=== PATIENT | male | born 1980 | race Caucasian/White ===

== ENCOUNTER 2019-01-05 14:54 | Inpatient (IN) | payer MEDICAID, OTHER ==
[~2019-01-05] VITALS: Ht 160 cm; Wt 53.2 kg
[2019-01-05] MEDS ORDERED: SODIUM CHLORIDE 0.9% 1,000 ML IV ONE ×2 (15:14→16:00)
[2019-01-05] MEDS ORDERED: LORAZEPAM 2MG/ML CPJ IV ONE (15:15)
[2019-01-05] MEDS ORDERED: IBUPROFEN 600MG TABLET PO ONE (15:15)
[2019-01-05 15:43] LABS: HEMATOCRIT. 26.4 % (42.0-52.0); HEMOGLOBIN. 8.8 g/dL (14.0-18.0); MEAN CORPUSCULAR HEMOGLOBIN 27.1 pg (28.0-32.0); MEAN CORPUSCULAR VOLUME 81.3 fL (80.0-94.0); PLATELET 93 x1000/uL (130-400); RED BLOOD CELL COUNT 3.25 mill/uL (4.7-6.1); RED CELL DISTRIBUTION WIDTH 21.4 % (11.6-14.6)
[2019-01-05 15:48] LABS: CHLORIDE 100 mEq/L (98-107)
[2019-01-05 15:49] LABS: INR 1.1; PROTHROMBIN TIME 11.7 sec (9.6-11.0)
[2019-01-05 15:52] LABS: ETHANOL BLOOD < 10 mg/dL
[2019-01-05 16:06] LABS: PLATELET ESTIMATE DECREASED
[2019-01-05] MEDS: PIPERACILLIN/TAZ 3.375G PREMIX 50 ML IV NR ×2 (16:09→16:33)
[2019-01-05] MEDS ORDERED: VANCOMYCIN 1 G PREMIX 200 ML IV SCH (16:15)
[2019-01-05] MEDS ORDERED: PIPERACILLIN/TAZOBACTAM 3.375GM/50ML PREMIX IV ONE (16:15)
[2019-01-05] MEDS ORDERED: POTASSIUM CHLORIDE 20MEQ TABLET SR PO ONE (17:30)
[2019-01-05 17:53] LABS: CLARITY URINE CLOUDY (CLEAR); COLOR URINE DARK YELLOW (YELLOW); KETONES URINE TRACE (NEGATIVE); LEUKOCYTE ESTERASE URINE TRACE (NEGATIVE); NITRITE URINE NEGATIVE (NEGATIVE); OCCULT BLOOD URINE 3+ (NEGATIVE); PH URINE 6.5 (4.5-8.0); PROTEIN URINE 2+ (NEGATIVE); SPECIFIC GRAVITY URINE 1.014 (1.005-1.030)
[2019-01-05] MEDS ORDERED: POTASSIUM CHLORIDE INJ 40 MEQ in DEXT 5% WATER 250 ML IV NR (18:00)
[2019-01-05 18:28] LABS: *AMPHETAMINES SCREEN URINE NEGATIVE (NEGATIVE); *BARBITURATES SCREEN URINE NEGATIVE (NEGATIVE); *BENZODIAZEPINES SCREEN URINE NEGATIVE (NEGATIVE); *COCAINE SCREEN URINE NEGATIVE (NEGATIVE); METHADONE URINE SCREEN NEGATIVE (NEGATIVE); OPIATES URINE SCREEN NEGATIVE (NEGATIVE)
[2019-01-05 18:29] LABS: CANNABINOID URINE SCREEN NEGATIVE (NEGATIVE); PHENCYCLIDINE URINE SCREEN NEGATIVE (NEGATIVE)
[2019-01-05] MEDS ORDERED: MAGNESIUM 2 G PREMIX 50 ML IV ONE (18:30)
[2019-01-05] MEDS ORDERED: MORPHINE SULFATE 2 MG/ML CPJ (NOT FOR IM USE) IV PRN (19:45)
[2019-01-05] MEDS ORDERED: LORAZEPAM 2MG/ML CPJ IV PRN (19:45)
[2019-01-05] MEDS ORDERED: ONDANSETRON HCL 4MG/2ML INJ IV PRN (19:45)
[2019-01-05 23:00] VITALS: BP 114/82
[2019-01-06] VITALS (12 sets, daily range): BP systolic 94–145; BP diastolic 30–89
[2019-01-06] MEDS: DEXT 5%/0.45% NACL 1000ML 1,000 ML IV SCH ×2 (02:35→17:02)
[2019-01-06 06:53] LABS: CHLORIDE 101 mEq/L (98-107)
[2019-01-06 06:59] LABS: HEMOGLOBIN. 8.9 g/dL (14.0-18.0); MEAN CORPUSCULAR HEMOGLOBIN 27.9 pg (28.0-32.0); MEAN CORPUSCULAR VOLUME 81.8 fL (80.0-94.0); MEAN PLATELET VOLUME 9.1 fl (7.4-10.4); PLATELET 96 x1000/uL (130-400); RED BLOOD CELL COUNT 3.18 mill/uL (4.7-6.1); RED CELL DISTRIBUTION WIDTH 21.6 % (11.6-14.6)
[2019-01-06] MEDS: FAMOTIDINE 20MG/2ML VIAL IV SCH (09:31)
[2019-01-06] MEDS ORDERED: POTASSIUM CHLORIDE INJ 40 MEQ in DEXT 5% WATER 250 ML IV NR (11:00)
[2019-01-06] MEDS: THIAMINE HCL 100MG TABLET PO SCH (11:32)
[2019-01-06] MEDS ORDERED: VANCOMYCIN 1,750 MG in DEXT 5% WATER 250 ML IV NR (12:00)
[2019-01-06 12:25] LABS: PLATELET ESTIMATE SLIGHTLY DECREASED
[2019-01-06] MEDS: LORAZEPAM 2MG/ML CPJ IV PRN ×2 (13:32→17:32)
[2019-01-06] MEDS: CHLORDIAZEPOXIDE 25MG CAPSULE PO SCH ×2 (13:32→21:51)
[2019-01-06] MEDS: VANCOMYCIN 1 G PREMIX 200 ML IV SCH ×2 (15:13→21:51)
[2019-01-06] MEDS ORDERED: VANCOMYCIN 1 G PREMIX 200 ML IV SCH (20:00)
[2019-01-06] MEDS: ACETAMINOPHEN 325MG TABLET PO PRN (20:48)
[2019-01-07] VITALS (13 sets, daily range): BP systolic 104–123; BP diastolic 55–86
[2019-01-07] MEDS: VANCOMYCIN 1 G PREMIX 200 ML IV SCH (06:19)
[2019-01-07] MEDS: ACETAMINOPHEN 325MG TABLET PO PRN (06:19)
[2019-01-07] MEDS: CHLORDIAZEPOXIDE 25MG CAPSULE PO SCH ×3 (06:19→22:29)
[2019-01-07] MEDS: DEXT 5%/0.45% NACL 1000ML 1,000 ML IV SCH (06:20)
[2019-01-07 07:32] LABS: CHLORIDE 100 mEq/L (98-107)
[2019-01-07] MEDS: THIAMINE HCL 100MG TABLET PO SCH (08:56)
[2019-01-07] MEDS: FAMOTIDINE 20MG/2ML VIAL IV SCH (08:56)
[2019-01-07] MEDS: LORAZEPAM 2MG/ML CPJ IV PRN ×2 (12:04→16:07)
[2019-01-07] MEDS: VANCOMYCIN 1250MG in DEXTROSE 5% WATER 250ML IV SCH (16:07)
[2019-01-08] VITALS (16 sets, daily range): BP systolic 100–117; BP diastolic 64–82
[2019-01-08] MEDS: VANCOMYCIN 1250MG in DEXTROSE 5% WATER 250ML IV SCH ×2 (00:44→08:14)
[2019-01-08] MEDS: DEXT 5%/0.45% NACL 1000ML 1,000 ML IV SCH ×3 (00:46→12:23)
[2019-01-08] MEDS: LORAZEPAM 2MG/ML CPJ IV PRN (01:18)
[2019-01-08] MEDS: CHLORDIAZEPOXIDE 25MG CAPSULE PO SCH ×3 (06:00→21:14)
[2019-01-08 06:17] LABS: HEMATOCRIT. 25.9 % (42.0-52.0); HEMOGLOBIN. 8.6 g/dL (14.0-18.0); MEAN CORPUSCULAR HEMOGLOBIN 27.7 pg (28.0-32.0); MEAN CORPUSCULAR VOLUME 83.2 fL (80.0-94.0); MEAN PLATELET VOLUME 8.7 fl (7.4-10.4); PLATELET 285 x1000/uL (130-400); RED BLOOD CELL COUNT 3.12 mill/uL (4.7-6.1); RED CELL DISTRIBUTION WIDTH 21.3 % (11.6-14.6)
[2019-01-08 06:29] LABS: CHLORIDE 104 mEq/L (98-107)
[2019-01-08] MEDS: THIAMINE HCL 100MG TABLET PO SCH (08:14)
[2019-01-08] MEDS: FAMOTIDINE 20MG/2ML VIAL IV SCH (08:14)
[2019-01-08] MEDS ORDERED: POTASSIUM CHLORIDE 20MEQ TABLET SR PO NR (09:15)
[2019-01-08] MEDS ORDERED: POTASSIUM CHLORIDE INJ 40 MEQ in DEXT 5% WATER 250 ML IV NR (10:30)
[2019-01-08 16:52] LABS: PLATELET ESTIMATE NORMAL
[2019-01-08] MEDS ORDERED: VANCOMYCIN 1 G PREMIX 200 ML IV SCH (17:00)
[2019-01-08] MEDS: VANCOMYCIN 1 G PREMIX 200 ML IV SCH (18:25)
[2019-01-09] VITALS (12 sets, daily range): BP systolic 100–120; BP diastolic 63–78
[2019-01-09] MEDS: LORAZEPAM 2MG/ML CPJ IV PRN ×3 (01:11→23:53)
[2019-01-09] MEDS: VANCOMYCIN 1 G PREMIX 200 ML IV SCH ×2 (01:57→11:31)
[2019-01-09] MEDS: DEXT 5%/0.45% NACL 1000ML 1,000 ML IV SCH ×4 (02:03→23:54)
[2019-01-09] MEDS: CHLORDIAZEPOXIDE 25MG CAPSULE PO SCH ×3 (06:39→22:18)
[2019-01-09 07:56] LABS: CHLORIDE 107 mEq/L (98-107)
[2019-01-09] MEDS ORDERED: POTASSIUM CHLORIDE 20MEQ TABLET SR PO SCH (08:30)
[2019-01-09] MEDS: FAMOTIDINE 20MG/2ML VIAL IV SCH (09:50)
[2019-01-09] MEDS: THIAMINE HCL 100MG TABLET PO SCH (09:50)
[2019-01-09] MEDS ORDERED: POTASSIUM CHLORIDE INJ 40 MEQ in DEXT 5% WATER 500 ML IV SCH (10:00)
[2019-01-09] MEDS: CEFAZOLIN 2000MG in DEXTROSE 5% WATER 100ML IV SCH ×2 (14:58→22:18)
[2019-01-09] MEDS ORDERED: VANCOMYCIN 1250MG in DEXTROSE 5% WATER 250ML IV SCH (22:00)
[2019-01-10] VITALS (12 sets, daily range): BP systolic 92–114; BP diastolic 59–79
[2019-01-10] MEDS: CEFAZOLIN 2000MG in DEXTROSE 5% WATER 100ML IV SCH ×3 (06:03→22:23)
[2019-01-10] MEDS: CHLORDIAZEPOXIDE 25MG CAPSULE PO SCH ×3 (06:04→22:23)
[2019-01-10 07:39] LABS: CHLORIDE 113 mEq/L (98-107)
[2019-01-10] MEDS: FAMOTIDINE 20MG/2ML VIAL IV SCH (09:22)
[2019-01-10] MEDS: THIAMINE HCL 100MG TABLET PO SCH (09:22)
[2019-01-10] MEDS: DEXT 5%/0.45% NACL 1000ML 1,000 ML IV SCH ×2 (09:23→22:23)
[2019-01-10] MEDS: LORAZEPAM 2MG/ML CPJ IV PRN ×2 (09:23→15:12)
[2019-01-10] MEDS: ACETAMINOPHEN 325MG TABLET PO PRN (09:24)
[2019-01-10] MEDS: POTASSIUM CHLORIDE 20MEQ TABLET SR PO SCH (13:29)
[2019-01-11] VITALS (9 sets, daily range): BP systolic 103–129; BP diastolic 59–85
[2019-01-11] MEDS: CHLORDIAZEPOXIDE 25MG CAPSULE PO SCH ×2 (06:45→13:19)
[2019-01-11] MEDS: THIAMINE HCL 100MG TABLET PO SCH (09:42)
[2019-01-11] MEDS: POTASSIUM CHLORIDE 20MEQ TABLET SR PO SCH (09:42)
[2019-01-11] MEDS: FAMOTIDINE 20MG/2ML VIAL IV SCH (10:52)
[2019-01-11] MEDS: CEFAZOLIN 2,000 MG in DEXT 5% WATER 100 ML IV SCH ×2 (13:21→21:20)
[2019-01-11] MEDS: DEXT 5%/0.45% NACL 1000ML 1,000 ML IV SCH (15:14)
[2019-01-11] MEDS: ACETAMINOPHEN 325MG TABLET PO PRN (21:20)
[2019-01-12] VITALS (7 sets, daily range): BP systolic 99–116; BP diastolic 67–82
[2019-01-12] MEDS: DEXT 5%/0.45% NACL 1000ML 1,000 ML IV SCH ×3 (02:25→20:03)
[2019-01-12] MEDS: CEFAZOLIN 2,000 MG in DEXT 5% WATER 100 ML IV SCH ×3 (07:02→20:03)
[2019-01-12] MEDS: POTASSIUM CHLORIDE 20MEQ TABLET SR PO SCH (09:01)
[2019-01-12] MEDS: THIAMINE HCL 100MG TABLET PO SCH (09:01)
[2019-01-12] MEDS: FAMOTIDINE 20MG/2ML VIAL IV SCH (09:01)
[2019-01-12] MEDS ORDERED: LORAZEPAM 2MG/ML CPJ IV PRN (12:00)
[2019-01-13] VITALS: BP 96/64
[2019-01-13 04:00] VITALS: BP 98/65
[2019-01-13] MEDS: CEFAZOLIN 2,000 MG in DEXT 5% WATER 100 ML IV SCH (04:54)
[2019-01-13 08:00] VITALS: BP 101/63
[2019-01-13] MEDS: THIAMINE HCL 100MG TABLET PO SCH (08:10)
[2019-01-13] MEDS: FAMOTIDINE 20MG/2ML VIAL IV SCH (08:10)
[2019-01-13] MEDS: POTASSIUM CHLORIDE 20MEQ TABLET SR PO SCH (08:10)
[2019-01-13] MEDS: DEXT 5%/0.45% NACL 1000ML 1,000 ML IV SCH ×2 (08:11→17:43)
[2019-01-13 12:00] VITALS: BP 104/70
[2019-01-13] MEDS: SULFAMETHOXAZOLE/TRIMETHOPRIM 400/80MG TAB PO SCH (15:11)
[2019-01-13 16:00] VITALS: BP 104/73
[2019-01-13 20:00] VITALS: BP 104/74
[2019-01-14] VITALS: BP 99/69
[2019-01-14] MEDS: SULFAMETHOXAZOLE/TRIMETHOPRIM 400/80MG TAB PO SCH ×2 (02:14→14:19)
[2019-01-14] MEDS: DEXT 5%/0.45% NACL 1000ML 1,000 ML IV SCH ×3 (03:16→23:50)
[2019-01-14 04:00] VITALS: BP 104/70
[2019-01-14 08:00] VITALS: BP 101/72
[2019-01-14] MEDS: THIAMINE HCL 100MG TABLET PO SCH (09:13)
[2019-01-14] MEDS: POTASSIUM CHLORIDE 20MEQ TABLET SR PO SCH (09:13)
[2019-01-14] MEDS: FOLIC ACID/VITAMIN B COMP W-C TABLET PO SCH (09:13)
[2019-01-14] MEDS: FAMOTIDINE 20MG/2ML VIAL IV SCH (09:13)
[2019-01-14] MEDS: ACETAMINOPHEN 325MG TABLET PO PRN (09:14)
[2019-01-14] MEDS: MULTIVITAMINS,THER W-MINERALS TABLET PO SCH (09:26)
[2019-01-14 12:00] VITALS: BP 97/67
[2019-01-14 16:00] VITALS: BP 92/63
[2019-01-14 20:00] VITALS: BP 98/64
[2019-01-15] VITALS: BP 99/65
[2019-01-15] MEDS: SULFAMETHOXAZOLE/TRIMETHOPRIM 400/80MG TAB PO SCH ×2 (01:54→14:40)
[2019-01-15 04:00] VITALS: BP 94/59
[2019-01-15 08:00] VITALS: BP 104/66
[2019-01-15] MEDS: FAMOTIDINE 20MG/2ML VIAL IV SCH (09:02)
[2019-01-15] MEDS: MULTIVITAMINS,THER W-MINERALS TABLET PO SCH (09:02)
[2019-01-15] MEDS: FOLIC ACID/VITAMIN B COMP W-C TABLET PO SCH (09:02)
[2019-01-15] MEDS: POTASSIUM CHLORIDE 20MEQ TABLET SR PO SCH (09:02)
[2019-01-15] MEDS: THIAMINE HCL 100MG TABLET PO SCH (09:39)
[2019-01-15 12:00] VITALS: BP 100/59
[2019-01-15 15:51] VITALS: BP 100/55
[2019-01-15] MEDS: DEXT 5%/0.45% NACL 1000ML 1,000 ML IV SCH (19:43)
[2019-01-15 20:00] VITALS: BP 93/59
[2019-01-16] VITALS: BP 93/66
[2019-01-16] MEDS: SULFAMETHOXAZOLE/TRIMETHOPRIM 400/80MG TAB PO SCH ×2 (02:21→14:36)
[2019-01-16 04:00] VITALS: BP 90/54
[2019-01-16] MEDS: DEXT 5%/0.45% NACL 1000ML 1,000 ML IV SCH ×2 (06:18→15:47)
[2019-01-16 08:00] VITALS: BP 90/53
[2019-01-16] MEDS: ACETAMINOPHEN 325MG TABLET PO PRN (09:23)
[2019-01-16] MEDS: FAMOTIDINE 20MG/2ML VIAL IV SCH (09:23)
[2019-01-16] MEDS: THIAMINE HCL 100MG TABLET PO SCH (09:24)
[2019-01-16] MEDS: FOLIC ACID/VITAMIN B COMP W-C TABLET PO SCH (09:24)
[2019-01-16] MEDS: POTASSIUM CHLORIDE 20MEQ TABLET SR PO SCH (09:24)
[2019-01-16] MEDS: MULTIVITAMINS,THER W-MINERALS TABLET PO SCH (09:24)
[2019-01-16 12:00] VITALS: BP 96/61
[2019-01-16 16:00] VITALS: BP 98/57
[2019-01-16 20:00] VITALS: BP 99/61
[2019-01-17] VITALS: BP 103/63
[2019-01-17] MEDS: DEXT 5%/0.45% NACL 1000ML 1,000 ML IV SCH ×3 (01:43→20:51)
[2019-01-17 04:00] VITALS: BP 103/67
[2019-01-17] MEDS: SULFAMETHOXAZOLE/TRIMETHOPRIM 400/80MG TAB PO SCH ×2 (04:26→14:52)
[2019-01-17 08:00] VITALS: BP 94/65
[2019-01-17] MEDS: FOLIC ACID/VITAMIN B COMP W-C TABLET PO SCH (09:54)
[2019-01-17] MEDS: THIAMINE HCL 100MG TABLET PO SCH (09:54)
[2019-01-17] MEDS: POTASSIUM CHLORIDE 20MEQ TABLET SR PO SCH (09:54)
[2019-01-17] MEDS: MULTIVITAMINS,THER W-MINERALS TABLET PO SCH (09:54)
[2019-01-17] MEDS: FAMOTIDINE 20MG/2ML VIAL IV SCH (09:54)
[2019-01-17 12:00] VITALS: BP 100/67
[2019-01-17] MEDS: CHLORDIAZEPOXIDE 25MG CAPSULE PO SCH ×2 (14:50→17:23)
[2019-01-17 16:00] VITALS: BP 102/68
[2019-01-17 20:00] VITALS: BP 89/50
[2019-01-18] VITALS: BP 89/55
[2019-01-18 04:00] VITALS: BP 91/59
[2019-01-18] MEDS: SULFAMETHOXAZOLE/TRIMETHOPRIM 400/80MG TAB PO SCH ×2 (05:32→13:59)
[2019-01-18] MEDS: DEXT 5%/0.45% NACL 1000ML 1,000 ML IV SCH ×2 (05:33→16:20)
[2019-01-18 08:00] VITALS: BP 93/53
[2019-01-18] MEDS: THIAMINE HCL 100MG TABLET PO SCH (09:12)
[2019-01-18] MEDS: FAMOTIDINE 20MG/2ML VIAL IV SCH (09:12)
[2019-01-18] MEDS: MULTIVITAMINS,THER W-MINERALS TABLET PO SCH (09:12)
[2019-01-18] MEDS: FOLIC ACID/VITAMIN B COMP W-C TABLET PO SCH (09:12)
[2019-01-18] MEDS: POTASSIUM CHLORIDE 20MEQ TABLET SR PO SCH (09:12)
[2019-01-18] MEDS: CHLORDIAZEPOXIDE 25MG CAPSULE PO SCH ×3 (09:13→16:20)
[2019-01-18 12:00] VITALS: BP_SYST 93; BP_SYST 97; BP_DIAS 51; BP_DIAS 55
[2019-01-18 16:00] VITALS: BP 97/55
[2019-01-18 20:00] VITALS: BP 98/61
[2019-01-19] VITALS: BP 90/50
[2019-01-19] MEDS: SULFAMETHOXAZOLE/TRIMETHOPRIM 400/80MG TAB PO SCH ×2 (02:06→13:13)
[2019-01-19 04:00] VITALS: BP 97/61
[2019-01-19] MEDS: DEXT 5%/0.45% NACL 1000ML 1,000 ML IV SCH ×3 (07:07→23:27)
[2019-01-19 08:00] VITALS: BP 97/61
[2019-01-19] MEDS: FAMOTIDINE 20MG/2ML VIAL IV SCH (09:47)
[2019-01-19] MEDS: FOLIC ACID/VITAMIN B COMP W-C TABLET PO SCH (09:47)
[2019-01-19] MEDS: MULTIVITAMINS,THER W-MINERALS TABLET PO SCH (09:47)
[2019-01-19] MEDS: CHLORDIAZEPOXIDE 25MG CAPSULE PO SCH ×3 (09:47→18:32)
[2019-01-19] MEDS: POTASSIUM CHLORIDE 20MEQ TABLET SR PO SCH (09:47)
[2019-01-19] MEDS: THIAMINE HCL 100MG TABLET PO SCH (09:47)
[2019-01-19 12:00] VITALS: BP 94/58
[2019-01-19 16:00] VITALS: BP 97/61
[2019-01-19 20:00] VITALS: BP 99/56
[2019-01-20] VITALS: BP 108/63
[2019-01-20] MEDS: SULFAMETHOXAZOLE/TRIMETHOPRIM 400/80MG TAB PO SCH ×2 (02:03→14:05)
[2019-01-20 04:00] VITALS: BP 101/64
[2019-01-20 08:00] VITALS: BP 99/65
[2019-01-20] MEDS: FAMOTIDINE 20MG/2ML VIAL IV SCH (08:39)
[2019-01-20] MEDS: FOLIC ACID/VITAMIN B COMP W-C TABLET PO SCH (08:39)
[2019-01-20] MEDS: CHLORDIAZEPOXIDE 25MG CAPSULE PO SCH ×3 (08:39→18:00)
[2019-01-20] MEDS: POTASSIUM CHLORIDE 20MEQ TABLET SR PO SCH (08:39)
[2019-01-20] MEDS: MULTIVITAMINS,THER W-MINERALS TABLET PO SCH (08:39)
[2019-01-20] MEDS: THIAMINE HCL 100MG TABLET PO SCH (08:39)
[2019-01-20] MEDS: DEXT 5%/0.45% NACL 1000ML 1,000 ML IV SCH ×2 (08:48→19:43)
[2019-01-20 12:00] VITALS: BP 102/57
[2019-01-20 16:00] VITALS: BP 90/54
[2019-01-20 20:00] VITALS: BP 107/65
[2019-01-21] VITALS: BP 106/61
[2019-01-21 04:00] VITALS: BP 100/56
[2019-01-21] MEDS: DEXT 5%/0.45% NACL 1000ML 1,000 ML IV SCH ×2 (06:22→15:20)
[2019-01-21 08:00] VITALS: BP 97/59
[2019-01-21] MEDS: FAMOTIDINE 20MG/2ML VIAL IV SCH (09:00)
[2019-01-21] MEDS: POTASSIUM CHLORIDE 20MEQ TABLET SR PO SCH (09:46)
[2019-01-21] MEDS: FOLIC ACID/VITAMIN B COMP W-C TABLET PO SCH (09:46)
[2019-01-21] MEDS: MULTIVITAMINS,THER W-MINERALS TABLET PO SCH (09:46)
[2019-01-21] MEDS: CHLORDIAZEPOXIDE 25MG CAPSULE PO SCH ×3 (09:46→16:05)
[2019-01-21] MEDS: THIAMINE HCL 100MG TABLET PO SCH (09:46)
[2019-01-21 12:01] VITALS: BP 91/48
[2019-01-21 16:00] VITALS: BP 96/59
[2019-01-21] MEDS: ACETAMINOPHEN 325MG TABLET PO PRN (17:33)
[2019-01-21 20:00] VITALS: BP 92/59
[2019-01-22] VITALS (7 sets, daily range): BP systolic 92–104; BP diastolic 57–67
[2019-01-22] MEDS: DEXT 5%/0.45% NACL 1000ML 1,000 ML IV SCH ×2 (05:14→15:47)
[2019-01-22] MEDS: THIAMINE HCL 100MG TABLET PO SCH (09:10)
[2019-01-22] MEDS: POTASSIUM CHLORIDE 20MEQ TABLET SR PO SCH (09:10)
[2019-01-22] MEDS: CHLORDIAZEPOXIDE 25MG CAPSULE PO SCH ×2 (09:10→12:51)
[2019-01-22] MEDS: MULTIVITAMINS,THER W-MINERALS TABLET PO SCH (09:10)
[2019-01-22] MEDS: FAMOTIDINE 20MG/2ML VIAL IV SCH (09:10)
[2019-01-22] MEDS: FOLIC ACID/VITAMIN B COMP W-C TABLET PO SCH (09:10)
[2019-01-22] MEDS: ACETAMINOPHEN 325MG TABLET PO PRN (09:11)
[2019-01-23] MEDS: ACETAMINOPHEN 325MG TABLET PO PRN ×2 (01:35→08:54)
[2019-01-23] MEDS: DEXT 5%/0.45% NACL 1000ML 1,000 ML IV SCH ×2 (01:39→10:20)
[2019-01-23 04:00] VITALS: BP 97/65
[2019-01-23 08:00] VITALS: BP 101/59
[2019-01-23] MEDS: POTASSIUM CHLORIDE 20MEQ TABLET SR PO SCH (08:53)
[2019-01-23] MEDS: THIAMINE HCL 100MG TABLET PO SCH (08:54)
[2019-01-23] MEDS: FOLIC ACID/VITAMIN B COMP W-C TABLET PO SCH (08:54)
[2019-01-23] MEDS: MULTIVITAMINS,THER W-MINERALS TABLET PO SCH (08:54)
[2019-01-23] MEDS: FAMOTIDINE 20MG/2ML VIAL IV SCH (10:54)
[2019-01-23] MEDS ORDERED: KETOROLAC 30MG/ML VIAL IV PRN (11:00)
[2019-01-23 16:00] VITALS: BP 99/62
[2019-01-23 20:00] VITALS: BP 89/52
[2019-01-24] VITALS: BP 97/62
[2019-01-24] MEDS: DEXT 5%/0.45% NACL 1000ML 1,000 ML IV SCH ×2 (00:15→13:47)
[2019-01-24 04:00] VITALS: BP 104/50
[2019-01-24 08:00] VITALS: BP 111/80
[2019-01-24] MEDS: POTASSIUM CHLORIDE 20MEQ TABLET SR PO SCH (08:42)
[2019-01-24] MEDS: MULTIVITAMINS,THER W-MINERALS TABLET PO SCH (08:42)
[2019-01-24] MEDS: FOLIC ACID/VITAMIN B COMP W-C TABLET PO SCH (08:42)
[2019-01-24] MEDS: THIAMINE HCL 100MG TABLET PO SCH (08:42)
[2019-01-24] MEDS: FAMOTIDINE 20MG/2ML VIAL IV SCH (11:31)
[2019-01-24 12:00] VITALS: BP 100/60
[2019-01-24 16:00] VITALS: BP 94/52
[2019-01-24 20:00] VITALS: BP 101/63
[2019-01-24] MEDS: ACETAMINOPHEN 325MG TABLET PO PRN (21:39)
[2019-01-25] VITALS: BP 105/68
[2019-01-25 04:00] VITALS: BP 104/56
[2019-01-25 06:22] LABS: BASOPHILS % 3.5 % (0.0-2.0); EOSINOPHILS % 3.5 % (0.0-5.0); HEMATOCRIT. 29.8 % (42.0-52.0); HEMOGLOBIN. 9.7 g/dL (14.0-18.0); LYMPHOCYTES % 15.2 % (20.0-50.0); MEAN CORPUSCULAR HEMOGLOBIN 28.4 pg (28.0-32.0); MEAN PLATELET VOLUME 7.4 fl (7.4-10.4); MONOCYTES % 6.8 % (2.0-8.0); PLATELET 508 x1000/uL (130-400); RED BLOOD CELL COUNT 3.42 mill/uL (4.7-6.1); RED CELL DISTRIBUTION WIDTH 17.7 % (11.6-14.6)
[2019-01-25 06:54] LABS: CHLORIDE 105 mEq/L (98-107)
[2019-01-25 08:00] VITALS: BP 117/78
[2019-01-25] MEDS: POTASSIUM CHLORIDE 20MEQ TABLET SR PO SCH (08:40)
[2019-01-25] MEDS: MULTIVITAMINS,THER W-MINERALS TABLET PO SCH (08:40)
[2019-01-25] MEDS: FOLIC ACID/VITAMIN B COMP W-C TABLET PO SCH (08:40)
[2019-01-25] MEDS: THIAMINE HCL 100MG TABLET PO SCH (08:40)
[2019-01-25 12:00] VITALS: BP 98/61
[2019-01-25 16:00] VITALS: BP 96/49
[2019-01-26] VITALS: BP 95/64
[2019-01-26 04:00] VITALS: BP 98/57
[2019-01-26 08:00] VITALS: BP 103/67
[2019-01-26] MEDS: FOLIC ACID/VITAMIN B COMP W-C TABLET PO SCH (08:12)
[2019-01-26] MEDS: FAMOTIDINE 20MG/2ML VIAL IV SCH (08:12)
[2019-01-26] MEDS: POTASSIUM CHLORIDE 20MEQ TABLET SR PO SCH (08:12)
[2019-01-26] MEDS: MULTIVITAMINS,THER W-MINERALS TABLET PO SCH (08:12)
[2019-01-26] MEDS: THIAMINE HCL 100MG TABLET PO SCH (08:12)
[2019-01-26 12:00] VITALS: BP 96/57
[2019-01-26] MEDS: DEXT 5%/0.45% NACL 1000ML 1,000 ML IV SCH (15:43)
[2019-01-26 16:00] VITALS: BP 95/53
[2019-01-26 20:00] VITALS: BP 95/61
[2019-01-27] VITALS: BP 95/59
[2019-01-27] MEDS: DEXT 5%/0.45% NACL 1000ML 1,000 ML IV SCH ×3 (02:02→20:09)
[2019-01-27 04:00] VITALS: BP 95/63
[2019-01-27 08:00] VITALS: BP 104/67
[2019-01-27] MEDS: THIAMINE HCL 100MG TABLET PO SCH (08:32)
[2019-01-27] MEDS: POTASSIUM CHLORIDE 20MEQ TABLET SR PO SCH (08:32)
[2019-01-27] MEDS: FAMOTIDINE 20MG/2ML VIAL IV SCH (08:32)
[2019-01-27] MEDS: FOLIC ACID/VITAMIN B COMP W-C TABLET PO SCH (08:32)
[2019-01-27] MEDS: MULTIVITAMINS,THER W-MINERALS TABLET PO SCH (08:32)
[2019-01-27 12:00] VITALS: BP 108/68
[2019-01-27 20:00] VITALS: BP 93/55
[2019-01-28] VITALS: BP 97/58
[2019-01-28 04:00] VITALS: BP 96/64
[2019-01-28] MEDS: DEXT 5%/0.45% NACL 1000ML 1,000 ML IV SCH ×2 (06:21→18:49)
[2019-01-28] MEDS: FAMOTIDINE 20MG/2ML VIAL IV SCH (09:22)
[2019-01-28] MEDS: FOLIC ACID/VITAMIN B COMP W-C TABLET PO SCH (09:22)
[2019-01-28] MEDS: POTASSIUM CHLORIDE 20MEQ TABLET SR PO SCH (09:22)
[2019-01-28] MEDS: THIAMINE HCL 100MG TABLET PO SCH (09:22)
[2019-01-28] MEDS: MULTIVITAMINS,THER W-MINERALS TABLET PO SCH (09:22)
[2019-01-28 09:38] VITALS: BP 102/58
[2019-01-28 12:00] VITALS: BP 97/62
[2019-01-28 20:00] VITALS: BP 102/60
[2019-01-29] VITALS: BP 98/63
[2019-01-29] MEDS: DEXT 5%/0.45% NACL 1000ML 1,000 ML IV SCH ×2 (02:44→23:30)
[2019-01-29 04:00] VITALS: BP 98/64
[2019-01-29 08:00] VITALS: BP 100/67
[2019-01-29] MEDS: POTASSIUM CHLORIDE 20MEQ TABLET SR PO SCH (08:37)
[2019-01-29] MEDS: FOLIC ACID/VITAMIN B COMP W-C TABLET PO SCH (08:37)
[2019-01-29] MEDS: FAMOTIDINE 20MG/2ML VIAL IV SCH (08:37)
[2019-01-29] MEDS: MULTIVITAMINS,THER W-MINERALS TABLET PO SCH (08:37)
[2019-01-29] MEDS: THIAMINE HCL 100MG TABLET PO SCH (08:37)
[2019-01-29 12:00] VITALS: BP 105/72
[2019-01-29 16:00] VITALS: BP 103/61
[2019-01-29 20:00] VITALS: BP 107/64
[2019-01-30] VITALS (7 sets, daily range): BP systolic 97–105; BP diastolic 53–63
[2019-01-30] MEDS: MULTIVITAMINS,THER W-MINERALS TABLET PO SCH (09:16)
[2019-01-30] MEDS: FOLIC ACID/VITAMIN B COMP W-C TABLET PO SCH (09:16)
[2019-01-30] MEDS: FAMOTIDINE 20MG/2ML VIAL IV SCH (09:16)
[2019-01-30] MEDS: POTASSIUM CHLORIDE 20MEQ TABLET SR PO SCH (09:16)
[2019-01-30] MEDS: THIAMINE HCL 100MG TABLET PO SCH (09:16)
[2019-01-30] MEDS: DEXT 5%/0.45% NACL 1000ML 1,000 ML IV SCH (09:17)
[2019-01-30] MEDS: CHLORDIAZEPOXIDE 25MG CAPSULE PO SCH ×2 (13:39→21:32)
[2019-01-30] MEDS: ACETAMINOPHEN 325MG TABLET PO PRN (16:19)
[2019-01-31] VITALS: BP 99/66
[2019-01-31 04:00] VITALS: BP 96/57
[2019-01-31] MEDS: CHLORDIAZEPOXIDE 25MG CAPSULE PO SCH ×3 (05:24→21:04)
[2019-01-31 08:00] VITALS: BP 98/59
[2019-01-31] MEDS: FAMOTIDINE 20MG/2ML VIAL IV SCH (08:25)
[2019-01-31] MEDS: MULTIVITAMINS,THER W-MINERALS TABLET PO SCH (08:25)
[2019-01-31] MEDS: POTASSIUM CHLORIDE 20MEQ TABLET SR PO SCH (08:25)
[2019-01-31] MEDS: THIAMINE HCL 100MG TABLET PO SCH (08:25)
[2019-01-31] MEDS: FOLIC ACID/VITAMIN B COMP W-C TABLET PO SCH (08:25)
[2019-01-31 12:00] VITALS: BP 97/57
[2019-01-31] MEDS: DEXT 5%/0.45% NACL 1000ML 1,000 ML IV SCH (15:59)
[2019-01-31 16:00] VITALS: BP 102/64
[2019-01-31 20:00] VITALS: BP 91/50
[2019-02-01] VITALS: BP 97/57
[2019-02-01] MEDS: DEXT 5%/0.45% NACL 1000ML 1,000 ML IV SCH ×3 (02:29→21:08)
[2019-02-01 04:00] VITALS: BP 92/59
[2019-02-01] MEDS: CHLORDIAZEPOXIDE 25MG CAPSULE PO SCH ×3 (05:14→21:04)
[2019-02-01 08:00] VITALS: BP 97/61
[2019-02-01] MEDS: MULTIVITAMINS,THER W-MINERALS TABLET PO SCH (08:30)
[2019-02-01] MEDS: POTASSIUM CHLORIDE 20MEQ TABLET SR PO SCH (08:30)
[2019-02-01] MEDS: FAMOTIDINE 20MG/2ML VIAL IV SCH (08:30)
[2019-02-01] MEDS: THIAMINE HCL 100MG TABLET PO SCH (08:30)
[2019-02-01] MEDS: FOLIC ACID/VITAMIN B COMP W-C TABLET PO SCH (08:30)
[2019-02-01 12:00] VITALS: BP 99/62
[2019-02-01 15:58] VITALS: BP 97/64
[2019-02-01 20:00] VITALS: BP 97/64
[2019-02-02] VITALS: BP 95/59
[2019-02-02 04:00] VITALS: BP 97/62
[2019-02-02] MEDS: CHLORDIAZEPOXIDE 25MG CAPSULE PO SCH ×3 (05:22→20:45)
[2019-02-02] MEDS: DEXT 5%/0.45% NACL 1000ML 1,000 ML IV SCH ×2 (06:00→16:42)
[2019-02-02 08:00] VITALS: BP 100/56
[2019-02-02] MEDS: POTASSIUM CHLORIDE 20MEQ TABLET SR PO SCH (08:43)
[2019-02-02] MEDS: MULTIVITAMINS,THER W-MINERALS TABLET PO SCH (08:43)
[2019-02-02] MEDS: FAMOTIDINE 20MG/2ML VIAL IV SCH (08:43)
[2019-02-02] MEDS: FOLIC ACID/VITAMIN B COMP W-C TABLET PO SCH (08:43)
[2019-02-02] MEDS: THIAMINE HCL 100MG TABLET PO SCH (08:43)
[2019-02-02 11:42] VITALS: BP 108/72
[2019-02-02 16:00] VITALS: BP 98/62
[2019-02-02 20:00] VITALS: BP 105/62
[2019-02-03] VITALS (7 sets, daily range): BP systolic 81–105; BP diastolic 50–63
[2019-02-03] MEDS: ACETAMINOPHEN 325MG TABLET PO PRN (00:02)
[2019-02-03] MEDS: CHLORDIAZEPOXIDE 25MG CAPSULE PO SCH ×3 (05:27→21:56)
[2019-02-03] MEDS: METOPROLOL TARTRATE 50MG TABLET PO SCH ×2 (05:55→20:31)
[2019-02-03] MEDS: MULTIVITAMINS,THER W-MINERALS TABLET PO SCH (09:07)
[2019-02-03] MEDS: THIAMINE HCL 100MG TABLET PO SCH (09:07)
[2019-02-03] MEDS: FOLIC ACID/VITAMIN B COMP W-C TABLET PO SCH (09:07)
[2019-02-03] MEDS: POTASSIUM CHLORIDE 20MEQ TABLET SR PO SCH (09:07)
[2019-02-03] MEDS: SODIUM CHLORIDE 0.9% 1,000 ML IV SCH ×2 (11:45→21:45)
[2019-02-03 13:11] LABS: HEMATOCRIT. 28.4 % (42.0-52.0); HEMOGLOBIN. 9.1 g/dL (14.0-18.0); MEAN CORPUSCULAR HEMOGLOBIN 27.8 pg (28.0-32.0); MEAN CORPUSCULAR VOLUME 86.8 fL (80.0-94.0); MEAN PLATELET VOLUME 7.2 fl (7.4-10.4); PLATELET 476 x1000/uL (130-400); RED BLOOD CELL COUNT 3.27 mill/uL (4.7-6.1); RED CELL DISTRIBUTION WIDTH 17.8 % (11.6-14.6)
[2019-02-03 13:16] LABS: CHLORIDE 104 mEq/L (98-107)
[2019-02-03 13:40] LABS: PLATELET ESTIMATE INCREASED
[2019-02-04] VITALS: BP 96/61
[2019-02-04 04:00] VITALS: BP 96/55
[2019-02-04] MEDS: CHLORDIAZEPOXIDE 25MG CAPSULE PO SCH ×2 (05:34→13:44)
[2019-02-04 08:00] VITALS: BP 99/64
[2019-02-04] MEDS: SODIUM CHLORIDE 0.9% 1,000 ML IV SCH ×2 (08:32→17:45)
[2019-02-04] MEDS: MULTIVITAMINS,THER W-MINERALS TABLET PO SCH (08:33)
[2019-02-04] MEDS: METOPROLOL TARTRATE 50MG TABLET PO SCH ×2 (08:33→20:35)
[2019-02-04] MEDS: FOLIC ACID/VITAMIN B COMP W-C TABLET PO SCH (08:34)
[2019-02-04] MEDS: POTASSIUM CHLORIDE 20MEQ TABLET SR PO SCH (08:34)
[2019-02-04 12:00] VITALS: BP 116/81
[2019-02-04 16:00] VITALS: BP 101/64
[2019-02-04 20:00] VITALS: BP 105/64
[2019-02-05] VITALS: BP 108/66
[2019-02-05] MEDS: SODIUM CHLORIDE 0.9% 1,000 ML IV SCH ×2 (03:12→13:45)
[2019-02-05 04:00] VITALS: BP 98/60
[2019-02-05 06:18] LABS: HEMATOCRIT. 27.4 % (42.0-52.0); MEAN CORPUSCULAR HEMOGLOBIN 28.5 pg (28.0-32.0); MEAN CORPUSCULAR VOLUME 86.3 fL (80.0-94.0); MEAN PLATELET VOLUME 7.7 fl (7.4-10.4); PLATELET 452 x1000/uL (130-400); RED BLOOD CELL COUNT 3.18 mill/uL (4.7-6.1); RED CELL DISTRIBUTION WIDTH 17.5 % (11.6-14.6)
[2019-02-05 08:00] VITALS: BP 99/55
[2019-02-05] MEDS: ACETAMINOPHEN 325MG TABLET PO PRN ×2 (08:55→16:13)
[2019-02-05] MEDS: MULTIVITAMINS,THER W-MINERALS TABLET PO SCH (08:55)
[2019-02-05] MEDS: FOLIC ACID/VITAMIN B COMP W-C TABLET PO SCH (08:55)
[2019-02-05] MEDS: POTASSIUM CHLORIDE 20MEQ TABLET SR PO SCH (08:55)
[2019-02-05] MEDS: METOPROLOL TARTRATE 50MG TABLET PO SCH ×2 (08:56→21:00)
[2019-02-05 12:00] VITALS: BP 95/65
[2019-02-05 16:00] VITALS: BP 97/66
[2019-02-05 20:00] VITALS: BP 106/65
[2019-02-05 20:14] LABS: PLATELET ESTIMATE INCREASED
[2019-02-05] MEDS: KETOROLAC 30MG/ML VIAL IV PRN (21:15)
[2019-02-06] VITALS: BP 96/57
[2019-02-06] MEDS: SODIUM CHLORIDE 0.9% 1,000 ML IV SCH ×2 (00:19→09:11)
[2019-02-06 08:00] VITALS: BP 111/72
[2019-02-06] MEDS: METOPROLOL TARTRATE 50MG TABLET PO SCH ×2 (09:00→21:02)
[2019-02-06] MEDS: FOLIC ACID/VITAMIN B COMP W-C TABLET PO SCH (09:10)
[2019-02-06] MEDS: MULTIVITAMINS,THER W-MINERALS TABLET PO SCH (09:10)
[2019-02-06] MEDS: POTASSIUM CHLORIDE 20MEQ TABLET SR PO SCH (09:10)
[2019-02-06] MEDS: KETOROLAC 30MG/ML VIAL IV PRN (09:15)
[2019-02-06 12:00] VITALS: BP 92/57
[2019-02-06 16:00] VITALS: BP 105/66
[2019-02-06 20:00] VITALS: BP 113/68
[2019-02-07] VITALS: BP 119/77
[2019-02-07] MEDS: SODIUM CHLORIDE 0.9% 1,000 ML IV SCH ×2 (01:17→14:48)
[2019-02-07 04:00] VITALS: BP 119/77
[2019-02-07 08:00] VITALS: BP 124/72
[2019-02-07] MEDS: POTASSIUM CHLORIDE 20MEQ TABLET SR PO SCH (09:48)
[2019-02-07] MEDS: METOPROLOL TARTRATE 50MG TABLET PO SCH ×2 (09:48→20:49)
[2019-02-07] MEDS: FOLIC ACID/VITAMIN B COMP W-C TABLET PO SCH (09:48)
[2019-02-07] MEDS: MULTIVITAMINS,THER W-MINERALS TABLET PO SCH (09:59)
[2019-02-07 12:00] VITALS: BP 121/69
[2019-02-07 16:00] VITALS: BP 114/75
[2019-02-07 20:00] VITALS: BP 100/61
[2019-02-08] VITALS (7 sets, daily range): BP systolic 95–122; BP diastolic 57–68
[2019-02-08] MEDS: SODIUM CHLORIDE 0.9% 1,000 ML IV SCH ×2 (01:47→11:31)
[2019-02-08] MEDS: MULTIVITAMINS,THER W-MINERALS TABLET PO SCH (09:28)
[2019-02-08] MEDS: FOLIC ACID/VITAMIN B COMP W-C TABLET PO SCH (09:28)
[2019-02-08] MEDS: METOPROLOL TARTRATE 50MG TABLET PO SCH ×2 (09:29→20:34)
[2019-02-08] MEDS: ACETAMINOPHEN 325MG TABLET PO PRN (16:31)
[2019-02-08] MEDS ORDERED: LORAZEPAM 2MG/ML CPJ IV PRN (18:00)
[2019-02-08] MEDS: CHLORDIAZEPOXIDE 25MG CAPSULE PO SCH ×2 (18:39→23:18)
[2019-02-08] MEDS: KETOROLAC 30MG/ML VIAL IV PRN (19:53)
[2019-02-09] VITALS: BP 94/59
[2019-02-09] MEDS: SODIUM CHLORIDE 0.9% 1,000 ML IV SCH ×2 (02:19→09:17)
[2019-02-09 04:00] VITALS: BP 103/68
[2019-02-09] MEDS: CHLORDIAZEPOXIDE 25MG CAPSULE PO SCH ×3 (06:23→22:43)
[2019-02-09 08:00] VITALS: BP 104/67
[2019-02-09] MEDS: METOPROLOL TARTRATE 50MG TABLET PO SCH ×2 (09:00→21:00)
[2019-02-09] MEDS: FOLIC ACID/VITAMIN B COMP W-C TABLET PO SCH (09:17)
[2019-02-09] MEDS: MULTIVITAMINS,THER W-MINERALS TABLET PO SCH (09:17)
[2019-02-09 12:00] VITALS: BP 104/65
[2019-02-09] MEDS: ACETAMINOPHEN 325MG TABLET PO PRN (14:42)
[2019-02-09 16:00] VITALS: BP_SYST 100; BP_DIAS 63; BP_DIAS 69
[2019-02-09 20:00] VITALS: BP 93/62
[2019-02-10] VITALS: BP 109/69
[2019-02-10 04:00] VITALS: BP 101/62
[2019-02-10] MEDS: CHLORDIAZEPOXIDE 25MG CAPSULE PO SCH ×3 (06:52→21:43)
[2019-02-10 08:00] VITALS: BP 102/64
[2019-02-10] MEDS: FOLIC ACID/VITAMIN B COMP W-C TABLET PO SCH (08:29)
[2019-02-10] MEDS: MULTIVITAMINS,THER W-MINERALS TABLET PO SCH (08:30)
[2019-02-10] MEDS: KETOROLAC 30MG/ML VIAL IV PRN (08:30)
[2019-02-10] MEDS: METOPROLOL TARTRATE 50MG TABLET PO SCH ×2 (08:30→20:30)
[2019-02-10 12:00] VITALS: BP 89/50
[2019-02-10] MEDS: SODIUM CHLORIDE 0.9% 1,000 ML IV SCH ×2 (13:45→21:48)
[2019-02-10] MEDS: ACETAMINOPHEN 325MG TABLET PO PRN (14:14)
[2019-02-10 16:00] VITALS: BP 94/58
[2019-02-10 20:00] VITALS: BP 102/58
[2019-02-11] VITALS: BP 99/56
[2019-02-11 04:00] VITALS: BP 92/53
[2019-02-11] MEDS: CHLORDIAZEPOXIDE 25MG CAPSULE PO SCH ×3 (06:45→21:56)
[2019-02-11] MEDS: SODIUM CHLORIDE 0.9% 1,000 ML IV SCH ×2 (06:46→20:34)
[2019-02-11 08:00] VITALS: BP 111/68
[2019-02-11] MEDS: METOPROLOL TARTRATE 50MG TABLET PO SCH ×2 (09:00→20:33)
[2019-02-11] MEDS: FOLIC ACID/VITAMIN B COMP W-C TABLET PO SCH (09:56)
[2019-02-11] MEDS: MULTIVITAMINS,THER W-MINERALS TABLET PO SCH (09:56)
[2019-02-11] MEDS: ACETAMINOPHEN 325MG TABLET PO PRN (10:00)
[2019-02-11] MEDS ORDERED: ACETAMINOPHEN WITH CODEINE 300/30MG TABLET PO PRN (10:45)
[2019-02-11 12:00] VITALS: BP 109/55
[2019-02-11 16:00] VITALS: BP 107/68
[2019-02-11 20:00] VITALS: BP 109/67
[2019-02-12] VITALS: BP 111/79
[2019-02-12 04:00] VITALS: BP 101/62
[2019-02-12] MEDS: SODIUM CHLORIDE 0.9% 1,000 ML IV SCH ×3 (05:32→22:41)
[2019-02-12] MEDS: CHLORDIAZEPOXIDE 25MG CAPSULE PO SCH ×3 (05:32→21:24)
[2019-02-12 08:00] VITALS: BP 101/65
[2019-02-12] MEDS: METOPROLOL TARTRATE 50MG TABLET PO SCH ×2 (08:27→20:47)
[2019-02-12 12:00] VITALS: BP 101/65
[2019-02-12 16:00] VITALS: BP 97/60
[2019-02-12 20:00] VITALS: BP 100/62
[2019-02-13] VITALS: BP 107/66
[2019-02-13 04:00] VITALS: BP 99/58
[2019-02-13] MEDS: CHLORDIAZEPOXIDE 25MG CAPSULE PO SCH ×3 (05:28→21:23)
[2019-02-13 08:00] VITALS: BP 101/59
[2019-02-13] MEDS: METOPROLOL TARTRATE 50MG TABLET PO SCH ×2 (09:00→21:00)
[2019-02-13] MEDS: SODIUM CHLORIDE 0.9% 1,000 ML IV SCH (11:00)
[2019-02-13 12:00] VITALS: BP 101/62
[2019-02-13 16:00] VITALS: BP 95/57
[2019-02-13 20:00] VITALS: BP 101/53
[2019-02-14] VITALS: BP 105/58
[2019-02-14 04:00] VITALS: BP 103/70
[2019-02-14] MEDS: CHLORDIAZEPOXIDE 25MG CAPSULE PO SCH ×3 (05:47→23:23)
[2019-02-14] MEDS: SODIUM CHLORIDE 0.9% 1,000 ML IV SCH ×3 (05:47→16:52)
[2019-02-14 08:00] VITALS: BP 85/59
[2019-02-14] MEDS: METOPROLOL TARTRATE 50MG TABLET PO SCH ×2 (08:57→21:00)
[2019-02-14 12:00] VITALS: BP 96/59
[2019-02-14 16:00] VITALS: BP 99/56
[2019-02-14 20:00] VITALS: BP 94/54
[2019-02-15] VITALS: BP 96/58
[2019-02-15] MEDS: SODIUM CHLORIDE 0.9% 1,000 ML IV SCH ×2 (05:38→13:02)
[2019-02-15] MEDS: CHLORDIAZEPOXIDE 25MG CAPSULE PO SCH ×2 (06:37→13:01)
[2019-02-15 07:12] VITALS: BP 104/69
[2019-02-15] MEDS: METOPROLOL TARTRATE 50MG TABLET PO SCH ×2 (09:00→21:00)
[2019-02-15 20:00] VITALS: BP 97/59
[2019-02-16] VITALS: BP 112/70
[2019-02-16 04:00] VITALS: BP 92/59
[2019-02-16] MEDS: SODIUM CHLORIDE 0.9% 1,000 ML IV SCH (07:22)
[2019-02-16 08:00] VITALS: BP 97/67
[2019-02-16] MEDS: METOPROLOL TARTRATE 50MG TABLET PO SCH (09:00)
[2019-02-16 12:00] VITALS: BP 99/64
[2019-02-16 14:12] VITALS: BP 95/63
== END 2019-02-16 15:30 | DRG 720 ==
LOC: ER 14:54 → 5EST 18:30 → EDBEDREQ 18:39 → SUPCPDRO 19:42 → ENRESERV 20:42 → EDBEDREQ 22:47 → 6EST 01-12 10:36
PROVIDERS: ADMIT Hospitalist; ATTEND Hospitalist
DX: A41.01 Sepsis due to Methicillin susceptible Staphylococcus aureus (principal); K85.90 Acute pancreatitis without necrosis or infection, unspecified; D69.6 Thrombocytopenia, unspecified; E46 Unspecified protein-calorie malnutrition; I42.9 Cardiomyopathy, unspecified; F10.239 Alcohol dependence with withdrawal, unspecified; E87.6 Hypokalemia; S50.312A Abrasion of left elbow, initial encounter; S50.311A Abrasion of right elbow, initial encounter; S80.212A Abrasion, left knee, initial encounter; R74.0 Nonspecific elevation of levels of transaminase and lactic acid dehydrogenase [LDH]; R00.0 Tachycardia, unspecified; S80.211A Abrasion, right knee, initial encounter; S30.813A Abrasion of scrotum and testes, initial encounter; X58.XXXA Exposure to other specified factors, initial encounter; Y93.89 Activity, other specified; Y92.89 Other specified places as the place of occurrence of the external cause; Y99.8 Other external cause status; Z68.20 Body mass index [BMI] 20.0-20.9, adult; Z59.0 Homelessness
CPT/HCPCS: 36415; 71045; 72170; 74176; 80048; 80202; 80305; 80320; 81003; 82140; 83605; 83735; 84134; 84484; 87077; 93005; 93306; 96374; 97116; 97162; 97530; 99285; A6261; C1893; J0690; J1885; J2060; J2270; J2405; J2543; J3370; J3475; J3480; J3490; J7030; J7060; G0480

== ENCOUNTER 2019-05-17 15:15 | Inpatient (IN) | payer MEDICAID ==
[~2019-05-17] VITALS: Ht 162.6 cm; Wt 57.4 kg
[2019-05-17] MEDS ORDERED: ACETAMINOPHEN WITH CODEINE 300/30MG TABLET PO STA (16:26)
[2019-05-17 17:05] LABS: HEMATOCRIT. 22.4 % (42.0-52.0); HEMOGLOBIN. 7.2 g/dL (14.0-18.0); MEAN CORPUSCULAR HEMOGLOBIN 23.9 pg (28.0-32.0); MEAN CORPUSCULAR VOLUME 74.7 fL (80.0-94.0); MEAN PLATELET VOLUME 7.9 fl (7.4-10.4); PLATELET 176 x1000/uL (130-400); RED CELL DISTRIBUTION WIDTH 19.1 % (11.6-14.6)
[2019-05-17 17:07] LABS: CHLORIDE 102 mEq/L (98-107)
[2019-05-17 17:10] LABS: ETHANOL BLOOD 65 mg/dL
[2019-05-17 18:02] LABS: PLATELET ESTIMATE NORMAL
[2019-05-17] MEDS ORDERED: SODIUM CHLORIDE 0.9% 1,000 ML IV ONE (20:08)
[2019-05-17] MEDS ORDERED: LORAZEPAM 2MG/ML CPJ IV ONE (20:15)
[2019-05-17 20:36] LABS: HEMATOCRIT 21.4 % (42.0-52.0); HEMOGLOBIN 6.8 g/dL (14.0-18.0)
[2019-05-17 20:39] LABS: INR 1.1; PROTHROMBIN TIME 11.1 sec (9.6-11.0)
[2019-05-17] MEDS ORDERED: ACETAMINOPHEN 325MG TABLET PO PRN (22:45)
[2019-05-17] MEDS ORDERED: LORAZEPAM 2MG/ML CPJ IV PRN (22:45)
[2019-05-17] MEDS ORDERED: MAGNESIUM/ALUMINUM HYDROXIDE/SIMETHICONE 30ML UDC PO PRN (22:45)
[2019-05-17] MEDS ORDERED: DOCUSATE SODIUM 100MG CAPSULE PO PRN (22:45)
[2019-05-17] MEDS ORDERED: IPRATROPIUM/ALBUTEROL 0.5-3(2.5)MG/3ML NEB NEB PRN (22:45)
[2019-05-17] MEDS ORDERED: ONDANSETRON HCL 4MG/2ML INJ IV PRN (22:45)
[2019-05-17] MEDS ORDERED: HYDROCODONE/ACETAMINOPHEN 5/325MG TABLET PO PRN (22:45)
[2019-05-17] MEDS ORDERED: CLONIDINE 0.1MG TABLET PO PRN (22:45)
[2019-05-17] MEDS ORDERED: MVI, ADULT NO.1 10 ML, FOLIC ACID 1 MG, THIAMINE HCL 100 MG in SODIUM CHLORIDE 0.9% 1,0... IV SCH ×4 (22:45)
[2019-05-18] MEDS: CHLORDIAZEPOXIDE 25MG CAPSULE PO SCH ×3 (01:49→18:00)
[2019-05-18 05:56] LABS: MEAN CORPUSCULAR HEMOGLOBIN 24.2 pg (28.0-32.0); MEAN CORPUSCULAR VOLUME 75.5 fL (80.0-94.0); MEAN PLATELET VOLUME 8.2 fl (7.4-10.4); PLATELET 151 x1000/uL (130-400); RED BLOOD CELL COUNT 2.73 mill/uL (4.7-6.1); RED CELL DISTRIBUTION WIDTH 18.9 % (11.6-14.6)
[2019-05-18 06:04] LABS: HEMATOCRIT. 20.6 % (42.0-52.0); HEMOGLOBIN. 6.6 g/dL (14.0-18.0)
[2019-05-18 06:14] LABS: CHLORIDE 107 mEq/L (98-107)
[2019-05-18 06:21] LABS: HDL CHOLESTEROL 32 mg/dL (40-59); LDL CHOLESTEROL 43 mg/dL (5-100)
[2019-05-18 06:23] LABS: CREATINE KINASE 80 IU/L (39-308)
[2019-05-18 06:26] LABS: CREATINE KINASE MB FRACTION < 1.0 ng/mL (0.5-3.6)
[2019-05-18] MEDS ORDERED: PANTOPRAZOLE 80 MG in SODIUM CHLORIDE 0.9% 100 ML IV ONE (07:00)
[2019-05-18 07:59] LABS: PLATELET ESTIMATE NORMAL
[2019-05-18] MEDS ORDERED: THIAMINE HCL 100MG TABLET PO SCH (09:00)
[2019-05-18] MEDS ORDERED: FOLIC ACID 1MG TABLET PO SCH (09:00)
[2019-05-18] MEDS ORDERED: MULTIVITAMINS,THER W-MINERALS TABLET PO SCH (09:00)
[2019-05-18 13:37] VITALS: BP 119/74
[2019-05-18 14:00] VITALS: BP 119/74
[2019-05-18 15:03] LABS: HEMATOCRIT. 29.2 % (42.0-52.0); HEMOGLOBIN. 9.5 g/dL (14.0-18.0); MEAN CORPUSCULAR HEMOGLOBIN 25.4 pg (28.0-32.0); MEAN CORPUSCULAR VOLUME 77.9 fL (80.0-94.0); MEAN PLATELET VOLUME 8.4 fl (7.4-10.4); PLATELET 177 x1000/uL (130-400); RED BLOOD CELL COUNT 3.75 mill/uL (4.7-6.1); RED CELL DISTRIBUTION WIDTH 19.4 % (11.6-14.6)
[2019-05-18 15:16] LABS: CREATINE KINASE 79 IU/L (39-308)
[2019-05-18 15:17] LABS: CREATINE KINASE MB FRACTION < 1.0 ng/mL (0.5-3.6)
[2019-05-18 16:19] LABS: NUCLEATED RED BLOOD CELLS 1 /100 WBC; PLATELET ESTIMATE NORMAL
[2019-05-18 20:10] LABS: HEPATITIS B SURFACE ANTIGEN NEGATIVE
[2019-05-18 20:40] LABS: HEPATITIS A AB IGM NEGATIVE (NEGATIVE)
[2019-05-19] MEDS: CHLORDIAZEPOXIDE 25MG CAPSULE PO SCH ×3 (02:06→17:02)
[2019-05-19 05:50] LABS: CHLORIDE 99 mEq/L (98-107)
[2019-05-19 06:39] LABS: HEMATOCRIT. 27.3 % (42.0-52.0); HEMOGLOBIN. 9.1 g/dL (14.0-18.0); MEAN CORPUSCULAR HEMOGLOBIN 25.9 pg (28.0-32.0); MEAN CORPUSCULAR VOLUME 77.8 fL (80.0-94.0); MEAN PLATELET VOLUME 8.2 fl (7.4-10.4); PLATELET 200 x1000/uL (130-400); RED BLOOD CELL COUNT 3.51 mill/uL (4.7-6.1); RED CELL DISTRIBUTION WIDTH 19.2 % (11.6-14.6)
[2019-05-19 08:00] VITALS: BP 116/76
[2019-05-19] MEDS: THIAMINE HCL 100MG TABLET PO SCH (08:23)
[2019-05-19] MEDS: FOLIC ACID 1MG TABLET PO SCH (08:24)
[2019-05-19] MEDS: MULTIVITAMINS,THER W-MINERALS TABLET PO SCH (08:24)
[2019-05-19] MEDS ORDERED: LORAZEPAM 2MG/ML CPJ IV PRN (09:45)
[2019-05-19 09:51] VITALS: BP 117/65
[2019-05-19] MEDS: HALOPERIDOL 0.5MG TABLET PO PRN ×2 (10:33→19:26)
[2019-05-19 12:00] VITALS: BP 115/75
[2019-05-19 13:38] LABS: NUCLEATED RED BLOOD CELLS 1 /100 WBC; PLATELET ESTIMATE NORMAL
[2019-05-19 13:56] VITALS: BP 112/85
[2019-05-19] MEDS: SODIUM CHLORIDE 0.9% 1,000 ML IV SCH (16:58)
[2019-05-19 17:49] LABS: AMYLASE 108 IU/L (25-115)
[2019-05-19] MEDS: LORAZEPAM 2MG/ML CPJ IV PRN ×2 (18:26→23:53)
[2019-05-19 20:00] VITALS: BP 116/85
[2019-05-20] VITALS (12 sets, daily range): BP systolic 105–145; BP diastolic 67–98
[2019-05-20] MEDS: CHLORDIAZEPOXIDE 25MG CAPSULE PO SCH ×4 (01:01→23:07)
[2019-05-20] MEDS: SODIUM CHLORIDE 0.9% 1,000 ML IV SCH ×2 (02:18→09:13)
[2019-05-20 05:08] LABS: HIV SCREEN 4G Non Reactive (Non Reactive)
[2019-05-20] MEDS: LORAZEPAM 2MG/ML CPJ IV PRN (05:37)
[2019-05-20] MEDS: HALOPERIDOL 0.5MG TABLET PO PRN (05:37)
[2019-05-20 07:21] LABS: HEMATOCRIT. 27.7 % (42.0-52.0); HEMOGLOBIN. 9.1 g/dL (14.0-18.0); MEAN CORPUSCULAR HEMOGLOBIN 25.7 pg (28.0-32.0); PLATELET 334 x1000/uL (130-400); RED BLOOD CELL COUNT 3.55 mill/uL (4.7-6.1); RED CELL DISTRIBUTION WIDTH 19.3 % (11.6-14.6)
[2019-05-20 07:24] LABS: CHLORIDE 105 mEq/L (98-107)
[2019-05-20 07:28] LABS: AMYLASE 103 IU/L (25-115)
[2019-05-20] MEDS: FOLIC ACID 1MG TABLET PO SCH (08:39)
[2019-05-20] MEDS: MULTIVITAMINS,THER W-MINERALS TABLET PO SCH (08:39)
[2019-05-20] MEDS: THIAMINE HCL 100MG TABLET PO SCH (08:39)
[2019-05-20] MEDS ORDERED: LORAZEPAM 2MG/ML CPJ IV PRN ×2 (10:00→10:20)
[2019-05-20 14:04] LABS: PLATELET ESTIMATE NORMAL
[2019-05-21] VITALS (11 sets, daily range): BP systolic 102–140; BP diastolic 64–93
[2019-05-21] MEDS: SODIUM CHLORIDE 0.9% 1,000 ML IV SCH ×2 (01:18→08:35)
[2019-05-21] MEDS: CHLORDIAZEPOXIDE 25MG CAPSULE PO SCH ×3 (06:37→21:16)
[2019-05-21 07:48] LABS: HEMATOCRIT. 27.2 % (42.0-52.0); HEMOGLOBIN. 8.9 g/dL (14.0-18.0); MEAN CORPUSCULAR VOLUME 79.1 fL (80.0-94.0); MEAN PLATELET VOLUME 7.4 fl (7.4-10.4); PLATELET 309 x1000/uL (130-400); RED BLOOD CELL COUNT 3.44 mill/uL (4.7-6.1); RED CELL DISTRIBUTION WIDTH 19.5 % (11.6-14.6)
[2019-05-21] MEDS: FOLIC ACID 1MG TABLET PO SCH ×2 (09:00→12:44)
[2019-05-21] MEDS: THIAMINE HCL 100MG TABLET PO SCH ×2 (09:00→12:44)
[2019-05-21] MEDS: MULTIVITAMINS,THER W-MINERALS TABLET PO SCH ×2 (09:00→12:44)
[2019-05-21 09:07] LABS: CHLORIDE 107 mEq/L (98-107)
[2019-05-21] MEDS ORDERED: DEXTROSE 50% WATER 50ML SYRINGE IV ONE (10:21)
[2019-05-21] MEDS ORDERED: DEXTROSE 50% WATER 50ML SYRINGE IV NR (10:30)
[2019-05-21] MEDS ORDERED: POTASSIUM CHLORIDE 20MEQ/PACKET PO NR (10:45)
[2019-05-21] MEDS ORDERED: DEXTROSE 50% WATER 50ML SYRINGE IV PRN (10:45)
[2019-05-21] MEDS: DEXT 5%/0.9% NACL 1,000 ML IV SCH ×2 (10:52→19:34)
[2019-05-21 11:28] LABS: PLATELET ESTIMATE NORMAL
[2019-05-21] MEDS: BLOOD SUGAR DIAGNOSTIC STRIP TEST SCH ×2 (12:40→18:26)
[2019-05-21] MEDS: HALOPERIDOL 0.5MG TABLET PO PRN (19:35)
[2019-05-22] VITALS (10 sets, daily range): BP systolic 67–110; BP diastolic 38–73
[2019-05-22] MEDS: DEXT 5%/0.9% NACL 1,000 ML IV SCH (06:18)
[2019-05-22] MEDS: BLOOD SUGAR DIAGNOSTIC STRIP TEST SCH ×3 (06:18→12:33)
[2019-05-22] MEDS: CHLORDIAZEPOXIDE 25MG CAPSULE PO SCH ×2 (06:18→13:21)
[2019-05-22 09:20] LABS: BASOPHILS % 1.3 % (0.0-2.0); EOSINOPHILS % 3.8 % (0.0-5.0); HEMATOCRIT. 26.3 % (42.0-52.0); HEMOGLOBIN. 8.5 g/dL (14.0-18.0); LYMPHOCYTES % 9.6 % (20.0-50.0); MEAN CORPUSCULAR HEMOGLOBIN 25.8 pg (28.0-32.0); MEAN CORPUSCULAR VOLUME 79.7 fL (80.0-94.0); MEAN PLATELET VOLUME 7.3 fl (7.4-10.4); MONOCYTES % 11.8 % (2.0-8.0); NEUTROPHILS % 73.5 % (40.0-76.0); PLATELET 358 x1000/uL (130-400); RED CELL DISTRIBUTION WIDTH 19.6 % (11.6-14.6)
[2019-05-22] MEDS: FOLIC ACID 1MG TABLET PO SCH (09:32)
[2019-05-22] MEDS: THIAMINE HCL 100MG TABLET PO SCH (09:32)
[2019-05-22] MEDS: MULTIVITAMINS,THER W-MINERALS TABLET PO SCH (09:32)
[2019-05-22 09:36] LABS: CHLORIDE 112 mEq/L (98-107)
[2019-05-22] MEDS ORDERED: POTASSIUM CHLORIDE 20MEQ/PACKET PO SCH (12:30)
== END 2019-05-22 17:30 | disposition home or self-care (01) | DRG 282 ==
LOC: ER 15:15 → 3WST 22:05 → EDBEDREQDT 05-18 07:08 → EDBEDREQSVC 05-18 07:08 → EDBEDREQTM 05-18 07:08 → ENRESERV 05-18 12:24 → 3WST 05-19 10:03
PROVIDERS: ADMIT Internal Medicine; ATTEND Internal Medicine
PROC: 30233N1 Transfusion of Nonautologous Red Blood Cells into Peripheral Vein, Percutaneous Approach (ICD-10-PCS; principal; 2019-05-17)
DX: K85.20 Alcohol induced acute pancreatitis without necrosis or infection (principal); F10.231 Alcohol dependence with withdrawal delirium; E46 Unspecified protein-calorie malnutrition; I42.9 Cardiomyopathy, unspecified; Z78.1 Physical restraint status; D72.829 Elevated white blood cell count, unspecified; K70.30 Alcoholic cirrhosis of liver without ascites; K76.0 Fatty (change of) liver, not elsewhere classified; K80.20 Calculus of gallbladder without cholecystitis without obstruction; L98.9 Disorder of the skin and subcutaneous tissue, unspecified; S01.111A Laceration without foreign body of right eyelid and periocular area, initial encounter; D50.9 Iron deficiency anemia, unspecified; Z86.14 Personal history of Methicillin resistant Staphylococcus aureus infection; Y08.89XA Assault by other specified means, initial encounter; Y93.89 Activity, other specified; Y92.89 Other specified places as the place of occurrence of the external cause; Y99.8 Other external cause status
CPT/HCPCS: 36415; 70486; 71045; 76700; 80048; 80053; 80061; 80076; 80320; 82140; 82150; 82550; 82553; 82947; 82962; 83735; 84145; 84443; 84484; 85014; 85018; 85025; 85044; 86705; 86709; 86803; 86850; 86900; 86920; 87340; 87389; 93005; 93970; 96361; 96365; 96366; 96368; 96375; 97162; 99291; C9113; J2060; J2405; J3411; J3490; J7030; J7042; J7050; P9016; G0480

== ENCOUNTER 2019-06-13 20:08 | Inpatient (IN) | payer MEDICAID, OTHER ==
[~2019-06-13] VITALS: Ht 162.6 cm; Wt 61.7 kg
[2019-06-13] MEDS ORDERED: VANCOMYCIN 1 G PREMIX 200 ML IV ONE (22:00)
[2019-06-13] MEDS ORDERED: SODIUM CHLORIDE 0.9% 1000ML BAG (SEPSIS BOLUS) IV ONE (22:00)
[2019-06-13] MEDS ORDERED: PIPERACILLIN/TAZ 3.375G PREMIX 50 ML IV ONE (22:00)
[2019-06-13 23:05] LABS: CHLORIDE 108 mEq/L (98-107); HEMATOCRIT. 27.7 % (42.0-52.0); HEMOGLOBIN. 8.9 g/dL (14.0-18.0); MEAN CORPUSCULAR HEMOGLOBIN 24.8 pg (28.0-32.0); MEAN CORPUSCULAR VOLUME 77.5 fL (80.0-94.0); PLATELET 281 x1000/uL (130-400); RED BLOOD CELL COUNT 3.57 mill/uL (4.7-6.1); RED CELL DISTRIBUTION WIDTH 19.7 % (11.6-14.6)
[2019-06-13 23:17] LABS: PLATELET ESTIMATE NORMAL
[2019-06-14 02:19] LABS: CLARITY URINE CLEAR (CLEAR); COLOR URINE YELLOW (YELLOW); KETONES URINE NEGATIVE (NEGATIVE); LEUKOCYTE ESTERASE URINE NEGATIVE (NEGATIVE); NITRITE URINE NEGATIVE (NEGATIVE); OCCULT BLOOD URINE NEGATIVE (NEGATIVE); PH URINE 5.5 (4.5-8.0); PROTEIN URINE NEGATIVE (NEGATIVE); SPECIFIC GRAVITY URINE 1.011 (1.005-1.030); UROBILINOGEN URINE 0.2 E.U./dL (0.2-1.0)
[2019-06-14 04:00] VITALS: BP 109/49
[2019-06-14 05:28] VITALS: BP 109/49
[2019-06-14] MEDS ORDERED: HYDROCODONE/ACETAMINOPHEN 5/325MG TABLET PO PRN (07:00)
[2019-06-14] MEDS ORDERED: ACETAMINOPHEN 325MG TABLET PO PRN (07:00)
[2019-06-14] MEDS ORDERED: CEFTRIAXONE 1 G PREMIX 50 ML IV SCH ×2 (07:00→09:00)
[2019-06-14 08:00] VITALS: BP 109/58
[2019-06-14] MEDS: ENOXAPARIN 40MG/0.4ML SYR SUBCUT SCH (09:58)
[2019-06-14 12:00] VITALS: BP 115/68
[2019-06-14] MEDS: THIAMINE HCL 100MG TABLET PO SCH (14:53)
[2019-06-14] MEDS: CHLORDIAZEPOXIDE 25MG CAPSULE PO SCH ×2 (14:53→21:19)
[2019-06-14] MEDS: FOLIC ACID 1MG TABLET PO SCH (14:53)
[2019-06-14 16:00] VITALS: BP 115/68
[2019-06-14] MEDS: DEXT 5%/0.9% NACL 1,000 ML IV SCH (16:10)
[2019-06-14 20:00] VITALS: BP 118/70
[2019-06-14 20:18] LABS: BASOPHILS % 2.5 % (0.0-2.0); EOSINOPHILS % 5.3 % (0.0-5.0); HEMATOCRIT. 24.3 % (42.0-52.0); HEMOGLOBIN. 7.8 g/dL (14.0-18.0); LYMPHOCYTES % 20.2 % (20.0-50.0); MEAN CORPUSCULAR HEMOGLOBIN 24.6 pg (28.0-32.0); MEAN CORPUSCULAR VOLUME 76.4 fL (80.0-94.0); MEAN PLATELET VOLUME 7.1 fl (7.4-10.4); MONOCYTES % 13.1 % (2.0-8.0); NEUTROPHILS % 58.9 % (40.0-76.0); PLATELET 222 x1000/uL (130-400); RED BLOOD CELL COUNT 3.18 mill/uL (4.7-6.1); RED CELL DISTRIBUTION WIDTH 19.4 % (11.6-14.6)
[2019-06-14 20:24] LABS: CHLORIDE 103 mEq/L (98-107)
[2019-06-14] MEDS: VITAMINS A AND D OINT 5GM UDPKT TOP SCH (23:40)
[2019-06-15] VITALS: BP 122/71
[2019-06-15] MEDS: VANCOMYCIN 1 G PREMIX 200 ML IV SCH ×3 (02:51→18:12)
[2019-06-15 04:00] VITALS: BP 114/75
[2019-06-15] MEDS: CHLORDIAZEPOXIDE 25MG CAPSULE PO SCH ×2 (06:01→15:24)
[2019-06-15 08:00] VITALS: BP 121/73
[2019-06-15] MEDS: VITAMINS A AND D OINT 5GM UDPKT TOP SCH (09:00)
[2019-06-15] MEDS: FOLIC ACID 1MG TABLET PO SCH (09:26)
[2019-06-15] MEDS: THIAMINE HCL 100MG TABLET PO SCH (09:26)
[2019-06-15] MEDS: ENOXAPARIN 40MG/0.4ML SYR SUBCUT SCH (09:27)
[2019-06-15 12:00] VITALS: BP 120/88
[2019-06-15 16:00] VITALS: BP 119/67
[2019-06-15 16:00] LABS: BASOPHILS % 1.2 % (0.0-2.0); EOSINOPHILS % 5.1 % (0.0-5.0); HEMOGLOBIN. 8.2 g/dL (14.0-18.0); LYMPHOCYTES % 9.5 % (20.0-50.0); MEAN CORPUSCULAR HEMOGLOBIN 24.5 pg (28.0-32.0); MEAN CORPUSCULAR VOLUME 77.4 fL (80.0-94.0); MONOCYTES % 6.1 % (2.0-8.0); NEUTROPHILS % 78.1 % (40.0-76.0); PLATELET 242 x1000/uL (130-400); RED BLOOD CELL COUNT 3.36 mill/uL (4.7-6.1); RED CELL DISTRIBUTION WIDTH 19.2 % (11.6-14.6)
[2019-06-15 16:21] LABS: CHLORIDE 105 mEq/L (98-107)
[2019-06-15] MEDS ORDERED: CHLO10CA71 MT (17:49)
[2019-06-15] MEDS ORDERED: CEPH-569 MT (17:50)
[2019-06-15] MEDS: DEXT 5%/0.9% NACL 1,000 ML IV SCH (18:13)
[2019-06-15 20:00] VITALS: BP 109/64
[2019-06-16] VITALS: BP 105/55
[2019-06-16] MEDS: CHLORDIAZEPOXIDE 25MG CAPSULE PO SCH ×3 (00:31→16:04)
[2019-06-16] MEDS: VANCOMYCIN 1 G PREMIX 200 ML IV SCH ×2 (00:59→09:40)
[2019-06-16 04:00] VITALS: BP 114/70
[2019-06-16 05:43] LABS: CHLORIDE 103 mEq/L (98-107)
[2019-06-16] MEDS: DEXT 5%/0.9% NACL 1,000 ML IV SCH (06:20)
[2019-06-16 08:00] VITALS: BP 109/64
[2019-06-16] MEDS: ENOXAPARIN 40MG/0.4ML SYR SUBCUT SCH (09:40)
[2019-06-16] MEDS: VITAMINS A AND D OINT 5GM UDPKT TOP SCH (09:40)
[2019-06-16] MEDS: FOLIC ACID 1MG TABLET PO SCH (09:41)
[2019-06-16] MEDS: THIAMINE HCL 100MG TABLET PO SCH (09:41)
[2019-06-16 12:00] VITALS: BP 105/55
[2019-06-16 12:06] VITALS: BP 109/64
== END 2019-06-16 16:55 | disposition home or self-care (01) | DRG 383 ==
LOC: ER 20:08 → 6EST 06-14 01:18 → EDBEDREQ 06-14 01:21 → EDBEDREQTM 06-14 01:21 → ENRESERV 06-14 02:23
PROVIDERS: ADMIT Family Medicine; ATTEND Family Medicine
DX: L03.116 Cellulitis of left lower limb (principal); E87.2 Acidosis; I42.9 Cardiomyopathy, unspecified; E44.0 Moderate protein-calorie malnutrition; F10.239 Alcohol dependence with withdrawal, unspecified; E11.9 Type 2 diabetes mellitus without complications; D64.9 Anemia, unspecified; F17.210 Nicotine dependence, cigarettes, uncomplicated; K76.9 Liver disease, unspecified; R74.0 Nonspecific elevation of levels of transaminase and lactic acid dehydrogenase [LDH]; Z59.0 Homelessness; Z68.23 Body mass index [BMI] 23.0-23.9, adult
CPT/HCPCS: 36415; 71045; 80048; 80053; 80202; 80320; 81003; 82962; 83605; 84145; 84484; 85025; 93005; 93970; 96365; 99285; J0696; J1650; J2543; J3370; J7030; J7040; J7042; G0480